=== PATIENT | male | born 1985 | race Caucasian/White ===

== ENCOUNTER → 2024-05-11 13:12 | Outpatient (CLI) | payer OTHER, SELFPAY ==
--- NOTE | 2024-05-11 | DI.MRI.S_ITS ---
PROCEDURE: MR LUMBAR SPINE WO CON INDICATIONS: Possible sciatic nerve injury TECHNIQUE: Noncontrast sagittal T1 spin echo and T2 fast echo, sagittal STIR, axial T1 and T2 fast spin echo through the lumbar spine. In cases with scoliosis, additional coronal T2 fast spin echo may be performed. COMPARISON: None. FINDINGS: Image quality: Excellent. Alignment and Curvature: There is normal bony alignment. Bone Marrow: Marrow is of normal overall signal. No acute vertebral body compression fractures. No sacral fractures. Spinal Cord: Conus medullaris terminates at the L1-L2 level. Visualized cord demonstrates normal signal and size. Paraspinous Soft Tissues: No paravertebral masses. T12-L1: Normal appearance. L1-L2: Normal appearance. L2-L3: Normal appearance. L3-L4: Mild facet arthropathy. No central canal or neural foraminal stenosis. L4-L5: Mild facet arthropathy. No central canal or neural foraminal stenosis. L5-S1: Facet arthropathy. Mild bilateral neural foraminal stenosis. No central canal stenosis. 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 Dictated by: Heraclio Urbina M.D. on 05/13/2024 at 9:08 Approved by: Heraclio Urbina M.D. on 05/13/2024 at 9:11
--- NOTE | 2024-05-11 | DI.MRI.S_ITS ---
PROCEDURE: MR FEMUR LT WO CON INDICATIONS: Possible sciatic nerve injury TECHNIQUE: Noncontrast coronal and sagittal T1 spin echo and STIR; axial T1 spin echo and T2 fast spin echo with fat saturation through the left femur. COMPARISON: [facility] Outside Film, MR, MR HIP LEFT WITHOUT CONTRAST, 01/28/2022, 9:15. FINDINGS: Image quality: Excellent. Bones: The visualized bone marrow demonstrates normal signal on all sequences. The overlying cortex appears intact. No fractures lines or intra-osseous lesions. Soft tissues: Sciatic nerve is normal in size and signal intensity. No soft tissue mass or external compression is seen along the course of the sciatic nerve from the level of the lower piriformis muscle through the knee. Superficial and deep femoral neurovascular bundles also appear intact. Thigh musculature is normal and symmetric and signal intensity and bulk. No signs of acute or chronic denervation changes. No significant hip or knee effusion. Included pelvic soft tissues are unremarkable. IMPRESSION: No abnormal signal, mass, or extrinsic compression is seen along the visualized course of the left sciatic nerve. Approved by: Aneesh Dubois M.D. on 05/13/2024 at 10:33
== END ==
PROVIDERS: Family Provider Internal Medicine; PCP Family Medicine; Referring Provider Preventive Medicine Occupational Medicine; Visit Provider Preventive Medicine Occupational Medicine
DX: S33.5XXA Sprain of ligaments of lumbar spine, initial encounter (principal); M47.816 Spondylosis without myelopathy or radiculopathy, lumbar region; M47.817 Spondylosis without myelopathy or radiculopathy, lumbosacral region; M48.07 Spinal stenosis, lumbosacral region; X58.XXXA Exposure to other specified factors, initial encounter
CPT/HCPCS: 72148; 73718